=== PATIENT | male | born 2000 | race Caucasian/White ===

== ENCOUNTER 2019-10-15 22:21 | Emergency (ER) | payer OTHER ==
[~2019-10-15] VITALS: Ht 172.7 cm; Wt 72.7 kg
[2019-10-16 00:14] LABS: BASO # 0.1 10^3/uL (0.0-0.2); BASO % 0.6 % (0.0-1.0); EOS # 0.4 10^3/uL (0.0-0.5); EOS % 4.4 % (0.0-3.0); HEMATOCRIT 41.1 % (42.0-52.0); HEMOGLOBIN 13.7 g/dl (13.5-17.5); LYMPH # 2.9 10^3/uL (1.5-5.0); LYMPH % 33.3 % (24.0-44.0); MEAN CORPUSCULAR HGB CONC 33.3 g/dl (32.0-36.5); MONO # 0.7 10^3/uL (0.0-0.8); MONO % 8.7 % (0.0-5.0); NEUTROPHILS # 4.5 10^3/uL (1.5-8.5); NEUTROPHILS % 52.5 % (36.0-66.0); PLATELET COUNT, AUTOMATED 193 10^3/uL (150-450); RED BLOOD COUNT 4.42 10^6/uL (4.30-6.10); WHITE BLOOD COUNT 8.6 10^3/uL (4.0-10.0)
[2019-10-16 00:26] LABS: INR 1.03; PARTIAL THROMBOPLASTIN TIME 29.5 SECONDS (25.0-38.4); PROTHROMBIN TIME 13.2 SECONDS (11.8-14.0)
[2019-10-16 00:45] LABS: CK-MB VALUE MASS 1.2 NG/ML (<3.6); CPK CREATINE PHOSPHOKINASE 214 U/L (39-308); FREE T4 1.09 NG/DL (0.78-1.33); MB/CK RELATIVE INDEX 0.56 (< OR =4); NT-PRO BNP 9 PG/ML (<125); TROPONIN I < 0.02 NG/ML (< 0.10)
[2019-10-16 01:37] LABS: D-DIMER QUANT < 270 ng/ml (<500)
[2019-10-16 02:44] VITALS: BP 115/67
--- NOTE | 2019-10-16 07:53 | ECGEPIP ---
[facility] - ED Test Date: 2019-10-15 Pat Name: BARON SAAB Department: Room: - Gender: Male Corporate Secretary: lorri : 2000 Requested By: LIZA JON PA-C Order Number: [id number] Reading MD: Francisco Adames Measurements Intervals [place] Rate: 88 P: 26 [place]: 147 QRS: 13 QRSD: 102 T: 15 QT: 368 QTc: 447 Interpretive Statements SINUS RHYTHM WITH SINUS ARRHYTHMIA INCOMPLETE RIGHT BUNDLE BRANCH BLOCK MINIMAL VOLTAGE CRITERIA FOR LVH, CONSIDER NORMAL VARIANT NONSPECIFIC T WAVE ABNORMALITIES NO PRIORS FOR COMPARISON Electronically Signed on 10-16-2019 7:53:35 EDT by Francisco Adames
--- NOTE | 2019-10-16 08:21 | REP ---
Chest x-ray: Two views. History: Chest pain shortness of breath . Comparison study: No comparison study . Findings: The lungs are well inflated and free of infiltrate. The pleural angles are sharp. The heart size is normal. Pulmonary vasculature is not increased. No significant bony abnormality is seen. Impression: Negative chest x-ray. Electronically Signed by Ángel Veliz MD 10/16/2019 08:13 A
== END 2019-10-16 02:46 | disposition home or self-care (01) ==
LOC: M ED 22:21
DX: R07.89 Other chest pain (principal); R06.02 Shortness of breath; I45.19 Other right bundle-branch block; Z88.0 Allergy status to penicillin; F17.210 Nicotine dependence, cigarettes, uncomplicated

== ENCOUNTER 2019-11-10 22:40 | Emergency (ER) | payer OTHER ==
[~2019-11-10] VITALS: Ht 172.7 cm; Wt 75.0 kg
[2019-11-10] MEDS ORDERED: ASPIRIN 81 MG CHEW TABLET PO ONE (23:30)
[2019-11-11 00:32] LABS: PARTIAL THROMBOPLASTIN TIME 29.8 SECONDS (25.0-38.4)
[2019-11-11 00:39] LABS: BASO # 0.1 10^3/uL (0.0-0.2); BASO % 0.6 % (0.0-1.0); EOS # 0.3 10^3/uL (0.0-0.5); EOS % 3.8 % (0.0-3.0); HEMOGLOBIN 14.2 g/dl (13.5-17.5); LYMPH % 37.1 % (24.0-44.0); MEAN CORPUSCULAR HEMOGLOBIN 31.1 pg (27.0-33.0); MEAN CORPUSCULAR VOLUME 94.1 fl (80.0-96.0); MONO # 0.5 10^3/uL (0.0-0.8); MONO % 6.7 % (0.0-5.0); NEUTROPHILS # 4.1 10^3/uL (1.5-8.5); NEUTROPHILS % 50.4 % (36.0-66.0); PLATELET COUNT, AUTOMATED 209 10^3/uL (150-450); RED BLOOD COUNT 4.57 10^6/uL (4.30-6.10); WHITE BLOOD COUNT 8.1 10^3/uL (4.0-10.0)
[2019-11-11 00:44] LABS: D-DIMER QUANT < 270 ng/ml (<500)
[2019-11-11 00:45] VITALS: BP 123/63
--- NOTE | 2019-11-11 08:48 | ECGEPIP ---
[facility] - ED Test Date: 2019-11-10 Pat Name: BARON SAAB Department: Room: - Gender: Male Loan Assistant: santi : 2000 Requested By: JED ÁLVAREZ Order Number: [id number] Reading MD: Francisco Adames Measurements Intervals [place] Rate: 69 P: 36 [place]: 149 QRS: 21 QRSD: 100 T: 19 QT: 367 QTc: 395 Interpretive Statements SINUS RHYTHM WITH SINUS ARRHYTHMIA INCOMPLETE RIGHT BUNDLE BRANCH BLOCK NONSPECIFIC T WAVE ABNORMALITIES SIMILAR TO 10/15/19 Electronically Signed on 11-11-2019 8:48:26 EDT by Francisco Adames
--- NOTE | 2019-11-11 10:38 | REP ---
TWO-VIEW CHEST: REASON FOR EXAM: Chest pain. COMPARISON: No priors. FINDINGS: The superior mediastinal structures are midline. The cardiac silhouette is unremarkable in size, shape, and position. The diaphragmatic surfaces of the lungs are regular, and the costophrenic angles are clear. The pulmonary chen are clear. The imaged osseous structures are intact. IMPRESSION: There is no acute cardiopulmonary disease. Electronically Signed by Alejandro Jaquez DO 11/11/2019 11:03 A
== END 2019-11-11 01:19 | disposition home or self-care (01) ==
LOC: M ED 22:40
DX: R07.89 Other chest pain (principal); R94.31 Abnormal electrocardiogram [ECG] [EKG]; Z82.49 Family history of ischemic heart disease and other diseases of the circulatory system; Z88.0 Allergy status to penicillin